=== PATIENT | female | born 1995 | race Caucasian/White ===

== ENCOUNTER 2021-12-16 16:19 | Emergency (ER) | payer OTHER, SELFPAY ==
[2021-12-16 16:25] VITALS: BP 123/78; PULSE 114; RESP 18; O2SAT 99
--- NOTE | 2021-12-16 17:57 | ED.GENADULT ---
HPI - General Adult General Chief complaint: Unspecified Stated complaint: Pregancy Confirmation Time Seen by Provider: 12/16/21 16:47 History of Present Illness HPI narrative: Patient is a 26-year-old female who presents ER for proof of . Patient reports her LMP was at the end of October 2021. She then realize she was late on her test and had a positive line at home over the last couple days. No vaginal bleeding or discharge. No lower abdominal pain. She had some mild nausea this morning. No vomiting. Denies fevers or chills or sweats. She is a G2, P0 who had a spontaneous AB 5 years ago. She does not currently have an director export. Related Data Allergies Allergy/AdvReac Type Severity Reaction Status Date / Time No Known Allergies Allergy Verified 12/16/21 16:21 Review of Systems Review of Systems: All systems reviewed & are unremarkable except as noted in HPI and below Constitutional: Constitutional: Denies chills and Denies fever(s) Respiratory: Respiratory: Denies cough and Denies dyspnea Gastrointestinal: Gastrointestinal: Denies abdominal pain, Reports nausea and Denies vomiting Genitourinary: Genitourinary: Denies abnormal vaginal bleeding, Denies nocturia, Denies dysuria, Denies pelvic pain, Denies urinary urgency and Denies vaginal discharge PMF Past Medical History Medical History (Updated 12/16/21 @ 18:06 by Juan Portillo MD) Healthy female adult Surgical History Surgical History (Updated 12/16/21 @ 18:03 by Juan Portillo MD) No history of previous surgery Social History Social History (Updated 12/16/21 @ 18:04 by Juan Portillo MD) Substance use: former Substance use type: crack/cocaine and heroin Exam Narrative: GENERAL: Well-appearing, well-nourished, and in no acute distress. HEAD: Normocephalic, atraumatic. EYES: PERRL and EOMI. CHEST: Clear to auscultation. No respiratory distress. HEART: Regular rate and rhythm.No murmur heard. Normal peripheral pulses. ABDOMEN: Soft, nontender, nondistended. EXTREMITIES: Normal range of motion. No edema. NEURO: Alert and oriented x3. PSYCH: Normal mood and affect. Course Course Emergency Course: Patient has no complaints of any symptoms. She had a positive test. She will be discharged with some medication for morning sickness and vitamins because she does not have any. We will give her OB follow-up. Vital Signs Vital signs: Vital Signs Pulse Rate 114 H 12/16/21 16:25 Respiratory Rate 18 12/16/21 16:25 Blood Pressure 123/78 12/16/21 16:25 Pulse Oximetry 99 12/16/21 16:25 Pulse Rate 114 H 12/16/21 16:25 Respiratory Rate 18 12/16/21 16:25 Blood Pressure 123/78 12/16/21 16:25 Pulse Oximetry 99 12/16/21 16:25 Medical Decision Making Vital Signs Vital Signs: Vital Signs Pulse Rate 114 H 12/16/21 16:25 Respiratory Rate 18 12/16/21 16:25 Blood Pressure 123/78 12/16/21 16:25 Pulse Oximetry 99 12/16/21 16:25 Pulse Rate 114 H 12/16/21 16:25 Respiratory Rate 18 12/16/21 16:25 Blood Pressure 123/78 12/16/21 16:25 Pulse Oximetry 99 12/16/21 16:25 Lab Data Labs: UCG Bedside Result Positive Reference Range: Negative Discharge Plan Discharge Clinical Impression: , confirmed, not first Patient Disposition: Home, Self-Care Condition: Stable Instructions: (ED) Additional Instructions: Return the ER if you have lower abdominal pain, you have vaginal bleeding, you develop vaginal discharge, you have any additional concerns. Call the OB listed to establish care. Prescriptions: New 28-800 mg-mcg tablet 1 tablet PO DAILY Qty: 30 RF: 4 promethazine 25 mg tablet 12.5 mg PO Q6H PRN (Reason: nausea and vomiting) Qty: 14 RF: 0 Follow-up/Referrals: Slade Underwood MD [Physician] - 1 Week
[2021-12-16 18:20] VITALS: BP 107/66; PULSE 74; RESP 16; O2SAT 100
== END 2021-12-16 18:23 | disposition home or self-care (01) ==
LOC: ANHED 18:07
PROVIDERS: Emergency Provider Emergency Medicine
DX: O26.891 Other specified pregnancy related conditions, first trimester (principal); R11.0 Nausea; Z3A.00 Weeks of gestation of pregnancy not specified
CPT/HCPCS: 81025; 99283

== ENCOUNTER 2022-02-11 11:15 | Emergency (ER) | payer OTHER, SELFPAY ==
[2022-02-11] VITALS (15 sets, daily range): BP systolic 99–121; BP diastolic 56–76; PULSE 57–72; RESP 13–20; TEMP 36.4; O2SAT 97–100
--- NOTE | ~2022-02-11 | CT_ITS ---
EXAMINATION: CT brain wo con INDICATION: Transient alteration of awareness COMPARISON: None TECHNIQUE: Standard unenhanced head CT. The dose-length product (DLP) was 605.33 mGy-cm. The mA was a djusted according to patient size. Iterative reconstruction technique was employed. FINDINGS: There is no intracranial hemorrhage, acute infarction, or abnormal mass lesion. The ventric les are normal. There is no abnormal mass effect or midline shift. The humphries-white matter differentiat ion is normal. The basal cisterns are patent. The orbits are normal. The paranasal sinuses, mastoids and calvarium are normal. IMPRESSION: 1. No acute intracranial abnormality. Reviewed, dictated and finalized at location B.
--- NOTE | ~2022-02-11 | XR_ITS ---
EXAMINATION: XR chest 1V INDICATION: Transient alteration of awareness TECHNIQUE: AP view the chest is obtained. COMPARISON: None available FINDINGS: The lungs are free of acute opacities. There is no pleural effusion or pneumothorax. The ca rdiomediastinal silhouette is normal. The visualized bones and soft tissues are unremarkable. IMPRESSION: 1. No acute cardiopulmonary abnormality. Reviewed, dictated and finalized at location B.
--- NOTE | 2022-02-11 11:24 | ECG_ITS ---
Measurements Intervals [place] Rate: 62 P: 72 ID: 92 QRS: 68 QRSD: 86 T: 61 QT: 410 QTc: 419 Interpretive Statements SINUS RHYTHM WITH SINUS ARRHYTHMIA WITH SHORT ID INTERVAL BASELINE ARTIFACT- I, II, III, AVR, AVL, AVF, V1-V6 BORDERLINE ECG Electronically Signed On 02-11-2022 11:56:00 CDT by Jack Wayne D.O.
[2022-02-11 11:36] LABS: Basophils Absolute Auto 0.1 K/mm3 (0.0-0.1); Basophils Percent Auto 0.6 % (0.2-1.2); Eosinophils Absolute Auto 0.3 K/mm3 (0-0.3); Eosinophils Percent Auto 3.1 % (0-4.4); Hematocrit 43.6 % (37.0-47.0); Hemoglobin 14.4 g/dL (12.0-15.0); Immature Granulocyte Absolute 0.04 K/mm3 (0.00-0.031); Immature Granulocyte Percent A 0.4 % (0-0.5); Immature Platelet Fraction Pct 4.7 % (0.9-11.2); Lymphocytes Absolute Auto 4.13 K/mm3 (0.9-3.2); Lymphocytes Percent Auto 38.1 % (18.3-44.2); Mean Corpuscular Hemoglobin 32.5 pg (26-34); Mean Corpuscular Volume 98.4 fl (80-100); Mean Platelet Volume 10.7 fl (7.4-10.4); Monocytes Absolute Auto 0.8 K/mm3 (0.1-0.6); Monocytes Percent Auto 7.6 % (2.6-8.5); Neutrophils Absolute Auto 5.5 K/mm3 (1.3-6.7); Neutrophils Percent Auto 50.2 % (45.5-73.1); Platelet Count Result 250 k/mm3 (150-375); Red Blood Count 4.43 M/mm3 (4.2-5.4); Red Cell Distribution Width 12.8 % (11.5-14.5); White Blood Count 10.8 K/mm3 (4.5-10.0)
[2022-02-11 11:53] LABS: Platelet Estimate Adequate (Adequate)
[2022-02-11 12:14] LABS: Alanine Aminotransferase 14 U/L (4-35); Albumin Level 4.5 g/dL (3.5-5.1); Alkaline Phosphatase 62 U/L (38-126); Anion Gap 8 mmol/L (8-16); Aspartate Amino Transferase 27 U/L (14-36); Bilirubin,Total 0.5 mg/dL (0.2-1.3); Blood Urea Nitrogen 12 mg/dL (7-17); Carbon Dioxide 23 mmol/L (22-30); Chloride 105 mmol/L (98-107); Estimated Glomerular Filt Rate > 60; Glucose 103 mg/dL (65-110); Potassium 4.2 mmol/L (3.4-5.0); Sodium 136 mmol/L (137-145)
--- NOTE | 2022-02-11 12:17 | ED.GENADULT ---
HPI - General Adult General Chief complaint: Syncope Stated complaint: weakness Time Seen by Provider: 02/11/22 12:02 Source: RN notes reviewed History of Present Illness HPI narrative: Patient presents emergency department for syncopal episode. The patient was being seen by Dr. Duane Hdz in the office today she had had a miscarriage in early January and was being followed up today in the office she had blood work drawn in the office and states that following that she has been leaving and began to feel mildly lightheaded in the elevator they got out to the parking lot and the patient had a syncopal episode she was caught by her significant other before she fell to the ground. Per bystanders she was out for approximately 30 to 45 seconds. Patient feels back to normal at this time she denies any fevers or chills, chest pain, shortness of breath abdominal pain nausea vomiting or any other symptom Related Data Allergies Allergy/AdvReac Type Severity Reaction Status Date / Time No Known Allergies Allergy Verified 12/16/21 16:21 Review of Systems Review of Systems: Gen.: Denies fevers or chills Eyes: Denies eye pain or visual change ENT: Denies congestion Respiratory: Denies shortness of breath or cough CV: See HPI GI: Denies abdominal pain nausea, emesis or diarrhea Musculoskeletal: Denies back pain or muscle pain Neuro: Denies numbness, tingling, weakness or focal weakness Skin: Denies rash Except as documented, all other systems reviewed and negative [facility] Past Medical History Medical History Healthy female adult Surgical History Surgical History (Updated 12/16/21 @ 18:03 by Juan Portillo MD) No history of previous surgery Social History Social History Substance use: former Substance use type: crack/cocaine and heroin Exam Narrative: APPEARANCE: No acute distress, nontoxic, resting in bed EYES: EOMI, PERRL HEENT: Normocephalic, atraumatic, OMM RESPIRATORY: No respiratory distress Clear to auscultation bilaterally with no rhonchi wheezing or rales. CARDIOVASCULAR: Regular rate and rhythm without murmurs rubs or gallops. ABDOMINAL: Soft, nontender, nondistended, no rebound or guarding MUSCULOSKELETAl: Moves all extremities. No clubbing, cyanosis or edema. NEURO: Awake and alert x 3. Following commands, speech normal, no focal deficits SKIN:: Warm, dry. No rashes lesions or abrasions PSYCHIATRIC: Normal affect/mood, Course Course Emergency Course: Patient able to get up and ambulate in ED with no difficulty Discussed with Dr Ansari agrees with plan for discharge Discussed with patient results of workup and diagnosis. Discussed need for follow-up with primary care, proper use of medication, and reasons to return to the emergency department. Patient understands and agrees to current treatment plan Vital Signs Vital signs: Vital Signs Temperature 97.5 F L 02/11/22 11:16 Pulse Rate 65 02/11/22 11:16 Respiratory Rate 16 02/11/22 11:16 Blood Pressure 110/60 02/11/22 11:16 Pulse Oximetry 100 02/11/22 11:16 Temperature 97.5 F L 02/11/22 11:16 Pulse Rate 62 02/11/22 15:23 Respiratory Rate 14 02/11/22 15:23 Blood Pressure 104/76 02/11/22 15:23 Pulse Oximetry 97 02/11/22 15:23 Medical Decision Making MDM Narrative Medical decision making narrative: Patient's episode of syncope is felt due to high risk cause. Syncopal episode was brief and patient is now back to normal mental status. EKG is reviewed without high-risk changes for syncope: There are no signs of prolonged QT or Brugada syndrome. Patient ambulates with a steady gait and is felt to be a reasonable candidate for further evaluation as an outpatient. Patient just had her blood drawn and an SALES EFFECTIVENESS MANAGER office suspect vasovagal episode Vital Signs Vital Signs: Vital Signs Temperature 97.5 F L 02/11/22 11:16 Pulse
[2022-02-11 12:38] LABS: Appearance Urine Slightly Cloudy (Clear); Bilirubin Urine Negative (Negative); Color Urine Yellow (Yellow); Glucose Urine UA Negative (Negative); Ketones Urine 1+ mg/dL (Negative); Leukocyte Esterase Ur Negative LEU/UL (Negative); Nitrate Urine Negative (Negative); Protein Urine 2+ mg/dL (Negative); Specific Grav Ur 1.025 (1.001-1.035)
[2022-02-11 12:40] LABS: Troponin I < 0.012 ng/mL (0.000-0.034)
[2022-02-11 12:42] LABS: Bacteria Urine Trace /hpf; Mucus Urine Heavy /lpf; Squamous Epithelial Cell Urine Many /hpf (Few); WBC Urine 0-3 /hpf
[2022-02-11 12:43] LABS: Add Urine Microscopic? YES; Blood Urine Trace-Intact (Negative)
[2022-02-11] MEDS: SODIUM CHLORIDE 0.9% IV 1,000 ML 999 ML IV CONT (13:06)
== END 2022-02-11 15:27 | disposition home or self-care (01) ==
PROVIDERS: Emergency Medicine; Emergency Provider Emergency Medicine
DX: R55 Syncope and collapse (principal); R94.31 Abnormal electrocardiogram [ECG] [EKG]
CPT/HCPCS: 36415; 70450; 71045; 80053; 81001; 81025; 84484; 85025; 85055; 93005; 96360; 99284; J7030

== ENCOUNTER 2022-04-06 15:58 | Emergency (ER) | payer OTHER, SELFPAY ==
--- NOTE | 2022-04-06 16:02 | ED.DENTAL ---
HPI - Dental/Oral General Chief complaint: Dental/Oral Stated complaint: Toothache Time Seen by Provider: 04/06/22 16:02 Source: patient and RN notes reviewed History of Present Illness HPI Narrative: Patient is a 26-year-old female who presents the urgent care with complaints of left lower dental pain and swollen jaw. Patient denies of any trauma or injury to the jaw. States that she noticed it approximately 1 week ago and does have a cracked wisdom tooth. Patient denies any fever, nausea or vomiting. Patient has been able to eat and talk normally with mild pain and tenderness. Patient has been taking ibuprofen intermittently for the headaches and jaw pain. No other acute complaints. No acute distress noted. Patient aware of the plan of care. Some parts of this dictation were generated by voice recognition software and may contain typographical and/or grammatical inaccuracies. Related Data Allergies Allergy/AdvReac Type Severity Reaction Status Date / Time No Known Allergies Allergy Verified 04/06/22 16:09 Review of Systems Review of Systems: CONSTITUTIONAL: Denies fever, chills, or sweats. EYES: Denies visual changes, redness, or discharge. ENT: Denies rhinorrhea, congestion, sore throat, or otalgia. Reports of left lower dental pain and jaw swelling CARDIOVASCULAR: Denies chest pain, palpitations, or edema. RESPIRATORY: Denies cough or dyspnea. GASTROINTESTINAL: Denies abdominal pain, nausea, vomiting, or diarrhea. GENITOURINARY: Denies dysuria or hematuria. SKIN: Denies rash or itching. MUSCULOSKELETAL: Denies back pain, joint pain, or myalgia. NEUROLOGIC: Denies headache, numbness, or weakness. All other systems reviewed are negative, except as documented in HPI. [facility] Past Medical History Medical History Healthy female adult Surgical History Surgical History (Updated 12/16/21 @ 18:03 by Juan Portillo MD) No history of previous surgery Social History Social History Substance use: former Substance use type: crack/cocaine and heroin Comments At the time of my signature, I reviewed and agree with the nursing past medical, surgical, social, and family history. There is no relevant family history pertinent to the patient complaint. Exam Narrative: GENERAL: This is a well-nourished, well-developed patient, in no apparent distress. HEAD: normocephalic, atraumatic. EYES: PERRL. Sclera clear/white. Vision is grossly intact. EARS: External ears normal NOSE: External nose normal with no obvious nasal discharge, nares without redness, no rhinorrhea. THROAT: Mucous membranes moist, posterior pharynx clear. DENTAL: Carious left lower third molar with small abscess to the posterior aspect and mild surrounding erythema. Bony/firm prominence to the left lower mandible not visible to the inside NECK: Neck supple CARDIOVASCULAR: Regular rate and rhythm without murmurs, gallops, or rubs. RESPIRATORY: Clear to auscultation. Breath sounds equal bilaterally. No wheezes, rales, or rhonchi. SKIN: warm, intact with no suspicious lesions or rash, good texture and turgor. NEURO: awake, alert, and oriented to person, place and time. There were no obvious focal neurologic abnormalities. EXTREMITIES: No clubbing, cyanosis, or edema. Course Course Level of Care: Express Care Visit Vital Signs Vital signs: Vital Signs Temperature 98.6 F 04/06/22 16:05 Pulse Rate 110 H 04/06/22 16:05 Respiratory Rate 18 04/06/22 16:05 Blood Pressure 119/70 04/06/22 16:05 Pulse Oximetry 100 04/06/22 16:05 Oxygen Delivery Room Air 04/06/22 16:05 Temperature 98.6 F 04/06/22 16:05 Pulse Rate 110 H 04/06/22 16:05 Respiratory Rate 18 04/06/22 16:05 Blood Pressure 119/70 04/06/22 16:05 Pulse Oximetry 100 04/06/22 16:05 Oxygen Delivery Room Air 04/06/22 16:05 Reviewed MDM - Dental/Or
[2022-04-06 16:05] VITALS: BP 119/70; PULSE 110; RESP 18; TEMP 37; O2SAT 100
== END 2022-04-06 16:25 | disposition home or self-care (01) ==
PROVIDERS: Emergency Provider Nurse Practitioner Family
DX: K04.7 Periapical abscess without sinus (principal)
CPT/HCPCS: 99213; G0463

== ENCOUNTER 2022-08-19 00:06 | Emergency (ER) | payer OTHER, SELFPAY ==
[2022-08-19 00:26] VITALS: BP 120/57; PULSE 96; RESP 18; TEMP 37.3; O2SAT 100
--- NOTE | 2022-08-19 01:51 | ED.GENADULT ---
HPI - General Adult General Chief complaint: Unspecified Stated complaint: toothache Time Seen by Provider: 08/19/22 01:30 History of Present Illness HPI narrative: 27-year-old female presents emergency room for evaluation of left lower molar pain. States pain has been present for 3 days and is radiating into her jaw during her headaches. Patient also reports being . Denies regular dentist. Related Data Allergies Allergy/AdvReac Type Severity Reaction Status Date / Time No Known Allergies Allergy Verified 08/19/22 01:21 Review of Systems Review of Systems: CONSTITUTIONAL: Denies fever, chills, or sweats. EYES: Denies visual changes, redness, or discharge. ENT: Reports dental pain CARDIOVASCULAR: Denies chest pain, palpitations, or edema. RESPIRATORY: Denies cough or dyspnea. GASTROINTESTINAL: Denies abdominal pain, nausea, vomiting, or diarrhea. GENITOURINARY: Denies dysuria or hematuria. SKIN: Denies rash or itching. MUSCULOSKELETAL: Denies back pain, joint pain, or myalgia. NEUROLOGIC: Denies headache, numbness, dizziness, or weakness. PSYCHIATRIC: Denies anxiety or depression. [facility] Past Medical History Medical History Healthy female adult Surgical History Surgical History No history of previous surgery Social History Social History Substance use: former Substance use type: crack/cocaine and heroin Exam Narrative: GENERAL: Well-appearing, well-nourished, no physical limitations, and in no acute distress. HEAD: Normocephalic, atraumatic. EYES: Conjunctivae normal, PERRLA and EOMI. ENT: Fractured left lower molar. No periapical abscess noted. No surrounding erythema. No submandibular swelling. NECK: Supple. No adenopathy or masses. CHEST: Clear to auscultation. No respiratory distress. No wheezes rales or rhonchi. No tenderness. HEART: Regular rate and rhythm. No murmur heard. Normal peripheral pulses. EXTREMITIES: Normal range of motion. No edema. No clubbing or cyanosis SKIN: Warm, dry, no rash. No noted wounds NEURO: No focal deficits. Alert and oriented x3. MAEW. CN's II-XI intact bilaterally, normal gait PSYCH: Cooperative. Normal mood and affect. Course Vital Signs Vital signs: Vital Signs Temperature 37.3 C 08/19/22 00:26 Pulse Rate 96 08/19/22 00:26 Respiratory Rate 18 08/19/22 00:26 Blood Pressure 120/57 L 08/19/22 00:26 Pulse Oximetry 100 08/19/22 00:26 Oxygen Delivery Room Air 08/19/22 00:26 Temperature 37.3 C 08/19/22 00:26 Pulse Rate 96 08/19/22 00:26 Respiratory Rate 18 08/19/22 00:26 Blood Pressure 120/57 L 08/19/22 00: Pulse Oximetry 100 08/19/22 00: Oxygen Delivery Room Air 08/19/22 00:26 Medical Decision Making Vital Signs Vital Signs: Vital Signs Temperature 37.3 C 08/19/22 00:26 Pulse Rate 96 08/19/22 00:26 Respiratory Rate 18 08/19/22 00:26 Blood Pressure 120/57 L 08/19/22 00:26 Pulse Oximetry 100 08/19/22 00:26 Oxygen Delivery Room Air 08/19/22 00:26 Temperature 37.3 C 08/19/22 00:26 Pulse Rate 96 08/19/22 00:26 Respiratory Rate 18 08/19/22 00:26 Blood Pressure 120/57 L 08/19/22 00:26 Pulse Oximetry 100 08/19/22 00:26 Oxygen Delivery Room Air 08/19/22 00:26 Discharge Plan Discharge Prescriptions: No Action amoxicillin-pot clavulanate 875-125 mg tablet 1 tablet PO Q12H Qty: 20 0RF Follow-up/Referrals: Osito,Curly Leal MD [Primary Care Provider] -
--- NOTE | 2022-08-19 02:23 | ED.GENADULT ---
HPI - General Adult General Chief complaint: Unspecified Stated complaint: toothache Time Seen by Provider: 08/19/22 01:30 Related Data Allergies Allergy/AdvReac Type Severity Reaction Status Date / Time No Known Allergies Allergy Verified 08/19/22 01:21 [facility] Past Medical History Medical History Healthy female adult Surgical History Surgical History No history of previous surgery Social History Social History Substance use: former Substance use type: crack/cocaine and heroin Course Vital Signs Vital signs: Vital Signs Temperature 37.3 C 08/19/22 00:26 Pulse Rate 96 08/19/22 00:26 Respiratory Rate 18 08/19/22 00:26 Blood Pressure 120/57 L 08/19/22 00:26 Pulse Oximetry 100 08/19/22 00:26 Oxygen Delivery Room Air 08/19/22 00:26 Temperature 37.3 C 08/19/22 00:26 Pulse Rate 96 08/19/22 00:26 Respiratory Rate 18 08/19/22 00:26 Blood Pressure 120/57 L 08/19/22 00:26 Pulse Oximetry 100 08/19/22 00:26 Oxygen Delivery Room Air 08/19/22 00:26 Procedures Nerve Block Nerve Block 1: Nerve block date: 08/19/22 Nerve block time: 02:24 Time out performed: Yes Local Anesthetic: lidocaine 1% Amount of anesthesia used (mL): 3 Side: left Intraoral Nerve Block: inferior alveolar Procedure Successful: Yes Patient Tolerated Procedure: well Complications: none Medical Decision Making Vital Signs Vital Signs: Vital Signs Temperature 37.3 C 08/19/22 00:26 Pulse Rate 96 08/19/22 00:26 Respiratory Rate 18 08/19/22 00:26 Blood Pressure 120/57 L 08/19/22 00:26 Pulse Oximetry 100 08/19/22 00:26 Oxygen Delivery Room Air 08/19/22 00:26 Temperature 37.3 C 08/19/22 00:26 Pulse Rate 96 08/19/22 00:26 Respiratory Rate 18 08/19/22 00:26 Blood Pressure 120/57 L 08/19/22 00:26 Pulse Oximetry 100 08/19/22 00:26 Oxygen Delivery Room Air 08/19/22 00:26 Discharge Plan Discharge Clinical Impression: Pain, dental Patient Disposition: Home, Self-Care Condition: Stable Instructions: Antibiotic Form, Toothache (ED) Prescriptions: New amoxicillin 500 mg tablet 500 mg PO Q12H Qty: 20 0RF No Action amoxicillin-pot clavulanate 875-125 mg tablet 1 tablet PO Q12H Qty: 20 0RF Follow-up/Referrals: Osito,Curly Leal MD [Primary Care Provider] - Time of Disposition: 01:54
[2022-08-19 02:42] VITALS: BP 116/63; PULSE 91; RESP 15; O2SAT 100
== END 2022-08-19 02:43 | disposition home or self-care (01) ==
PROVIDERS: Emergency Provider Nurse Practitioner Family; PCP Transplant Surgery
DX: K08.89 Other specified disorders of teeth and supporting structures (principal)
CPT/HCPCS: 64999; 99283

== ENCOUNTER 2022-12-12 21:04 | Observation (INO) | payer OTHER, SELFPAY ==
[2022-12-12] VITALS (30 sets, daily range): BP systolic 105–127; BP diastolic 44–79; PULSE 78–123; RESP 18; TEMP 36.6; O2SAT 97–100
--- NOTE | 2022-12-12 21:28 | PC.NURSE ---
Paged Dr. Ansari.
--- NOTE | 2022-12-12 21:34 | PC.NURSE ---
Dr. Ansari called back. Gave him report on patient coming in with contractions and hx of GDM in . Orders for FFN, SVE, LR 1000 ml bolus, US, check blood sugar and call back.
--- NOTE | 2022-12-12 21:42 | PC.NURSE ---
Pt blood sugar was 78. Called Dr. Ansari. Orders for 0.25 of Terbutaline now.
[2022-12-12 21:43] LABS: Glucose Point of Care 78 mg/dl (65-105)
[2022-12-12] MEDS: TERBUTALINE SULFATE 1 MG/ML VIAL 0.25 MG SUB-Q ×2 (21:51→23:22)
[2022-12-12] MEDS: LACTATED RINGERS 1,000 ML 999 ML IV CONT (22:14)
[2022-12-12 22:36] LABS: Appearance Urine Clear (Clear); Bilirubin Urine Negative (Negative); Blood Urine Trace-intact (Negative); Color Urine Yellow (Yellow); Glucose Urine UA Negative (Negative); Ketones Urine Trace mg/dL (Negative); Leukocyte Esterase Ur Negative LEU/UL (Negative); Nitrate Urine Negative (Negative); Protein Urine 1+ mg/dL (Negative); Specific Grav Ur 1.025 (1.001-1.035); Urobilinogen Urine 0.2 mg/dL (<2.0); pH Urine 6.5 (5.0-9.0)
[2022-12-12 22:47] LABS: Bacteria Urine Trace /hpf; Mucus Urine Rare /lpf; Squamous Epithelial Cell Urine Few /hpf (Few); WBC Urine 0-3 /hpf
[2022-12-12 22:52] LABS: Add Urine Microscopic? YES
[2022-12-12 23:05] LABS: Fetal Fibronectin Negative
--- NOTE | 2022-12-12 23:14 | OBADM ---
This patient, Alisa Gilliam, admitted to the OB room OB Post 115 for observation. Patient/family oriented to hospital policies and general routines including ID bracelet, bed and alarms, visiting hours, pain management, procedures, bathroom and other care routines, personal items, smoking policy, room service/diet, and visiting hours. Patient/Family are encouraged to report perceived risks to care and to ask questions if they do not understand what they are told or what they should do.
--- NOTE | 2022-12-12 23:17 | PC.NURSE ---
Called Dr. Ansari and updated him on SVE, terbutaline helping with contractions but them picking back up, and lab results given. Orders for a second dose of terbutaline.
--- NOTE | 2022-12-12 23:46 | PC.NURSE ---
Pt reports she is not currently feeling contractions.
[2022-12-13 00:01] VITALS: BP 114/56; PULSE 109; PULSE 110; O2SAT 99
[2022-12-13 00:06] VITALS: PULSE 104; O2SAT 100
--- NOTE | 2022-12-13 00:07 | PC.NURSE ---
Pt reports she has not been feeling nay contractions.
[2022-12-13 00:11] VITALS: PULSE 108; O2SAT 99
--- NOTE | 2022-12-13 00:13 | PC.NURSE ---
Updated Dr. Ansari on patients contractions stopping. FFN being negative. Orders to discharge patient.
--- NOTE | 2022-12-13 00:26 | PC.NURSE ---
Discharge instructions reviewed with patient including when to come back to hospital, kick counts, and labor s/s. Pt had no questions and ambulatory to exit.
--- NOTE | 2022-12-28 21:21 | P.PNOB_ITS ---
OB - Triage/Final Diagnosis Visit Information Comments/Additional reasons for admission: I have assessed the risk for this patient, Alisa Gilliam, and determined that she would benefit from observation care. Evaluation Laboratory results: Laboratory Tests 12/12/22 12/12/22 12/12/22 21:40 22:07 22:08 POC Capillary Glucose 78 Urine Color Yellow Urine Appearance Clear Urine pH 6.5 Ur Specific [place] 1.025 Urine Protein 1+ H Urine Glucose (UA) Negative Urine Ketones Trace Ur Blood (Man) Trace-intact Urine Nitrate Negative Urine Bilirubin Negative Urine Urobilinogen 0.2 Leukocyte Esterase Rfl Negative Urine RBC 3-5 H Urine WBC 0-3 Ur Squamous Epith Cells Few Urine Bacteria Trace Urine Mucus Rare Fibronectin Negative Final Diagnosis (1) False labor: Code(s): O47.9 - False labor, unspecified Status: Acute
== END 2022-12-13 00:25 | disposition home or self-care (01) ==
PROVIDERS: Obstetrics & Gynecology; Admitting Provider Obstetrics & Gynecology; Visit Provider Obstetrics & Gynecology
DX: O47.03 False labor before 37 completed weeks of gestation, third trimester (principal); O24.419 Gestational diabetes mellitus in pregnancy, unspecified control; Z3A.33 33 weeks gestation of pregnancy
CPT/HCPCS: 81001; 82731; 82948; 96360; 96372; G0379; J3105; J7120

== ENCOUNTER 2022-12-15 14:15 | Outpatient (RCR) | payer OTHER, SELFPAY | END 2023-02-23 08:38 | disposition home or self-care (01) | LOC: ANHDMC 14:15 | PROVIDERS: PCP Transplant Surgery; Visit Provider Obstetrics & Gynecology | DX: O24.319 Unspecified pre-existing diabetes mellitus in pregnancy, unspecified trimester (principal); Z71.89 Other specified counseling | CPT/HCPCS: G0108 ==

== ENCOUNTER 2022-12-15 21:21 | Observation (INO) | payer OTHER, SELFPAY ==
[2022-12-15] VITALS (18 sets, daily range): BP systolic 113–121; BP diastolic 58–64; PULSE 82–118; O2SAT 98–99; BMI 23.6
--- NOTE | 2022-12-15 22:22 | PC.NURSE ---
Dr. Rosenberg notified of , 33.4 week PT arriving from ED with c/o intermittent cramping that started at 1300 rating them a 5 on a scale of 1-10. PT has not taken any medication for pain. PT was seen here 3 days ago for lili, urine and FFN were performed, FFN neagtive, vitals WNL. PT lili 2-5mins apart, cervical exam performed, cervix is closed at this time. Orders to give a couple doses of Terbutaline, if contractions slow down or subside PT can be discharged home.
--- NOTE | 2022-12-15 22:22 | PC.NURSE ---
On initial call to Dr. Rosenberg RN mention PT c/o decreased movement but has been actively confirming movement per marker.
--- NOTE | 2022-12-15 22:29 | PC.NURSE ---
Mel Cassidy RN at bedside, explained plan of care per Dr. Rosenberg. PT agrees and verbalizes understanding of plan of care.
[2022-12-15] MEDS: TERBUTALINE SULFATE 1 MG/ML VIAL 0.25 MG SUB-Q (22:30)
--- NOTE | 2022-12-15 23:49 | OBADM ---
This patient, Alisa Gilliam, admitted to the OB room OB Post 116 for observation. Patient/family oriented to hospital policies and general routines including ID bracelet, bed and alarms, visiting hours, pain management, procedures, bathroom and other care routines, personal items, smoking policy, room service/diet, and visiting hours. Patient/Family are encouraged to report perceived risks to care and to ask questions if they do not understand what they are told or what they should do.
[2022-12-16] VITALS (16 sets, daily range): BP systolic 117; BP diastolic 66; PULSE 85–134; RESP 16; TEMP 36.5; O2SAT 96–99
[2022-12-16] MEDS: TERBUTALINE SULFATE 1 MG/ML VIAL 0.25 MG SUB-Q (00:24)
--- NOTE | 2022-12-16 01:59 | PC.NURSE ---
Mel Cassidy RN at bedside PT states she is no longer feeling cramping. Discharge instructions given and reviewed, PT verbalizes understanding. PT given opportunity to ask questions with all questions answered. PT stable at this time. PT discharged per Dr. Rosenberg orders.
--- NOTE | 2022-12-16 01:59 | PC.NURSE ---
Upon giving discharge instructions to PT and telling her to follow up with her OB doctor at next scheduled appointment she stated she is a PT of Dr. Duane Hdz. RN confirmed that she said her physician was Dr. Underwood on admission PT states yes, I got confused because I use to see Dr. Underwood. RN explained to PT Dr. Rosenberg was called for orders this visit due to that being the senior controls technician doctor for Dr. Underwood. PT verbalizes understanding.
--- NOTE | 2022-12-17 11:17 | PM.OBTRLD ---
OB - Triage/Final Diagnosis Visit Information Reason for evaluation: threatened labor Comments/Additional reasons for admission: I have assessed the risk for this patient, Alisa Gilliam, and determined that she would benefit from observation care.
== END 2022-12-16 01:59 | disposition home or self-care (01) ==
PROVIDERS: Admitting Provider Obstetrics & Gynecology; Visit Provider Obstetrics & Gynecology
DX: O47.03 False labor before 37 completed weeks of gestation, third trimester (principal); Z3A.33 33 weeks gestation of pregnancy
CPT/HCPCS: 96372; A9270; G0378; G0379; J3105

== ENCOUNTER 2022-12-16 16:03 | Observation (INO) | payer OTHER, SELFPAY ==
[2022-12-16 16:38] VITALS: BP 99/56; PULSE 90
[2022-12-16] MEDS: TERBUTALINE SULFATE 1 MG/ML VIAL 0.25 MG SUB-Q (16:40)
[2022-12-16 16:45] VITALS: BP 92/53; PULSE 101
[2022-12-16 17:00] VITALS: BP 115/54; PULSE 98
[2022-12-16 17:16] VITALS: BP 113/54; PULSE 99
[2022-12-16] MEDS: NIFEdipine 30 MG TAB.ER.24 PO (17:17)
[2022-12-16 17:26] VITALS: BMI 23.6
== END 2022-12-16 18:00 | disposition home or self-care (01) ==
PROVIDERS: Admitting Provider Obstetrics & Gynecology; Visit Provider Obstetrics & Gynecology
DX: O47.03 False labor before 37 completed weeks of gestation, third trimester (principal); Z3A.33 33 weeks gestation of pregnancy
CPT/HCPCS: 96372; A9270; G0378; G0379; J3105

== ENCOUNTER 2022-12-30 21:18 | Observation (INO) | payer OTHER, SELFPAY ==
[2022-12-30 21:29] VITALS: BP 121/67; PULSE 75; PULSE 81; O2SAT 97
[2022-12-30 21:31] VITALS: BP 119/67; PULSE 80
[2022-12-30 21:34] VITALS: PULSE 73; O2SAT 97
[2022-12-30 22:00] VITALS: BMI 23.1
[2022-12-30 22:57] VITALS: BMI 23.1
[2022-12-30] MEDS: NIFEdipine 10 MG CAPSULE PO (23:17)
[2022-12-30 23:21] VITALS: BP 112/67; PULSE 69
[2022-12-30 23:30] VITALS: BP 112/68; PULSE 67
[2022-12-30 23:39] LABS: Appearance Urine Cloudy (Clear); Bacteria Urine None Seen /hpf; Bilirubin Urine Negative (Negative); Blood Urine Negative (Negative); Color Urine Yellow (Yellow); Glucose Urine UA Negative (Negative); Ketones Urine Negative (Negative); Leukocyte Esterase Ur Negative LEU/UL (Negative); Nitrate Urine Negative (Negative); Non Pathogenic Casts 0-2; Protein Urine Trace mg/dL (Negative); RBC Urine 0-2 /hpf (0-2); Specific Grav Ur 1.014 (1.001-1.035); Squamous Epithelial Cell Urine Moderate /hpf (Few); WBC Urine 0-5 /hpf
[2022-12-30 23:45] VITALS: BP 122/74; PULSE 88
[2022-12-30 23:48] LABS: Amphetamine Screen Urine Negative (Negative); Barbiturate Screen Urine Negative (Negative); Benzodiazepines Screen Urine Negative (Negative); Cannabinoid Screen Urine Positive (Negative); Cocaine Screen Urine Negative (Negative); Methadone Screen Urine Negative (Negative); Opiate Screen Urine Negative (Negative); Phencyclidine Screen Urine Negative (Negative)
[2022-12-31] VITALS: BP 109/63; PULSE 84
[2022-12-31 00:01] LABS: Add Urine Microscopic? YES
[2022-12-31 00:15] VITALS: BP 106/61; PULSE 70
[2022-12-31] MEDS: NIFEdipine 10 MG CAPSULE PO (00:25)
[2022-12-31 00:30] VITALS: BP 110/71; PULSE 85
--- NOTE | 2022-12-31 00:45 | OBADM ---
This patient, Alisa Gilliam, admitted to the OB room OB Post 117 for observation. Patient/family oriented to hospital policies and general routines including ID bracelet, bed and alarms, visiting hours, pain management, procedures, bathroom and other care routines, personal items, smoking policy, room service/diet, and visiting hours. Patient/Family are encouraged to report perceived risks to care and to ask questions if they do not understand what they are told or what they should do.
--- NOTE | 2022-12-31 01:39 | PC.NURSE ---
[address] MERCER. [id number] DR[address] MERCER RESPONDED TO PAGE. REPORTED CURRENT MATERNAL AND STATUS. ORDERS RECEVIED TO GIVE PROCARDIA 10MG PO NOW, THEN REPEAT DOSE IN 30 MINUTES IF CONTRACTIONS RESUME. SEND UA AND UDS. OKAY TO DISCHARGE PT IF CONTRACTIONS DO NOT RESUME AND PT IS FEELING BETTER.
--- NOTE | 2022-12-31 01:41 | PC.NURSE ---
0100 DISCHARGE INSTRUCTIONS GIVEN WRITTEN AND VERBALLY TO PT. PT DENIES QUESTIONS OR CONCERNS AND VERBALIZES UNDERSTANDING. PT LEAVES L&D AMBULATORY ACCOMPANIED BY FAMILY MEMBERS, NO DISTRESS NOTED.
--- NOTE | 2023-01-25 14:26 | P.PNOB_ITS ---
OB - Triage/Final Diagnosis Visit Information Comments/Additional reasons for admission: I have assessed the risk for this patient, Alisa Gilliam, and determined that she would benefit from observation care. Evaluation Laboratory results: Laboratory Tests 12/30/22 12/30/22 23:25 23:25 Urine Color Yellow Urine Appearance Cloudy H Urine pH 7.0 Ur Specific [place] 1.014 Urine Protein Trace Urine Glucose (UA) Negative Urine Ketones Negative Ur Blood (Man) Negative Urine Nitrate Negative Urine Bilirubin Negative Urine Urobilinogen 1.0 Leukocyte Esterase Rfl Negative Urine RBC 0-2 Urine WBC 0-5 Ur Squamous Epith Cells Moderate H Urine Bacteria None seen Urine Casts 0-2 Urine Opiates Screen Negative Urine Methadone Screen Negative Ur Barbiturates Screen Negative Ur Phencyclidine Scrn Negative Ur Amphetamine Screen Negative U Benzodiazepines Scrn Negative Urine Cocaine Screen Negative U Cannabinoids Screen Positive A Final Diagnosis (1) Swelling: Code(s): R60.9 - Edema, unspecified Status: Acute
== END 2022-12-31 01:00 | disposition home or self-care (01) ==
PROVIDERS: Admitting Provider Obstetrics & Gynecology; Visit Provider Obstetrics & Gynecology
DX: O12.03 Gestational edema, third trimester (principal); Z3A.35 35 weeks gestation of pregnancy
CPT/HCPCS: 80307; 81001; A9270; G0378; G0379

== ENCOUNTER 2023-01-13 16:25 | Outpatient (RCR) | payer OTHER, SELFPAY ==
--- NOTE | 2023-01-13 17:00 | PC.NURSE ---
Dr. Ansari called on the pt with decreased movement. NST reactive. Pt reports she is out of test strips for her glucometer. states he will send a script to [facility] in [place]. Order to discharge received.
[2023-01-13 17:29] VITALS: BP 115/72; PULSE 81
== END 2023-04-13 23:59 | disposition home or self-care (01) ==
LOC: ANHOBOP 16:25
PROVIDERS: Visit Provider Obstetrics & Gynecology
DX: O36.8130 Decreased fetal movements, third trimester, not applicable or unspecified (principal); Z3A.37 37 weeks gestation of pregnancy
CPT/HCPCS: 59025

== ENCOUNTER 2023-01-25 22:04 | Observation (INO) | payer OTHER, SELFPAY ==
[2023-01-25 22:16] VITALS: BP 111/59; PULSE 73
[2023-01-25 22:20] VITALS: BMI 24.3
--- NOTE | 2023-01-25 23:34 | OBADM ---
This patient, Alisa Gilliam, admitted to the OB room OB Post 112 for observation. Patient/family oriented to hospital policies and general routines including ID bracelet, bed and alarms, visiting hours, pain management, procedures, bathroom and other care routines, personal items, smoking policy, room service/diet, and visiting hours. Patient/Family are encouraged to report perceived risks to care and to ask questions if they do not understand what they are told or what they should do.
--- NOTE | 2023-01-27 06:01 | PM.OBTRLD ---
OB - Triage/Final Diagnosis Visit Information Reason for evaluation: other ( leaking fluid) Comments/Additional reasons for admission: I have assessed the risk for this patient, Alisa Gilliam, and determined that she would benefit from observation care.
== END 2023-01-25 23:30 | disposition home or self-care (01) ==
PROVIDERS: Admitting Provider Obstetrics & Gynecology; Visit Provider Obstetrics & Gynecology
DX: O42.92 Full-term premature rupture of membranes, unspecified as to length of time between rupture and onset of labor (principal); Z3A.39 39 weeks gestation of pregnancy
CPT/HCPCS: 59025; G0378; G0379

== ENCOUNTER 2023-01-30 05:03 | Inpatient (IN) | payer OTHER, SELFPAY ==
[2023-01-30] VITALS (226 sets, daily range): BP systolic 86–218; BP diastolic 14–199; PULSE 57–205; RESP 16; TEMP 36.1–36.7; O2SAT 94–100; BMI 24.3
--- NOTE | 2023-01-30 05:23 | LDADM ---
This patient, Alisa Gilliam, was admitted to Labor/Delivery/Recovery 103 on 01/30/23 at 05:03. Plans for labor, pain management and were discussed with patient. Patient/family oriented to hospital policies and general routines including ID bracelet, bed and alarms, visiting hours, pain management, procedures, bathroom and other care routines, personal items, smoking policy, room service/diet and guest tray routines, security routines, and visiting hours. Patient/Family are encouraged to report perceived risks to care and to ask questions if they do not understand what they are told or what they should do. See OBIX for further documentation.
[2023-01-30 05:46] LABS: Basophils Percent Auto 0.3 % (0.2-1.2); Eosinophils Absolute Auto 0.1 K/mm3 (0-0.3); Eosinophils Percent Auto 0.9 % (0-4.4); Hematocrit 36.6 % (37.0-47.0); Hemoglobin 11.9 g/dL (12.0-15.0); Immature Granulocyte Absolute 0.07 K/mm3 (0.00-0.031); Immature Granulocyte Percent A 0.6 % (0-0.5); Lymphocytes Absolute Auto 3.16 K/mm3 (0.9-3.2); Lymphocytes Percent Auto 26.6 % (18.3-44.2); Mean Corpuscular HGB Conc 32.5 g/dl (32-36); Mean Corpuscular Volume 92.2 fl (80-100); Mean Platelet Volume 10.6 fl (7.4-10.4); Monocytes Absolute Auto 0.8 K/mm3 (0.1-0.6); Monocytes Percent Auto 6.8 % (2.6-8.5); Neutrophils Absolute Auto 7.7 K/mm3 (1.3-6.7); Neutrophils Percent Auto 64.8 % (45.5-73.1); Platelet Count Result 273 k/mm3 (150-375); Red Blood Count 3.97 M/mm3 (4.2-5.4); Red Cell Distribution Width 14.6 % (11.5-14.5); White Blood Count 11.9 K/mm3 (4.5-10.0)
[2023-01-30] MEDS: LACTATED RINGERS 1,000 ML 125 ML IV CONT ×2 (05:51→08:30)
[2023-01-30] MEDS: OXYTOCIN 30 UNITS/NS 500 ML 30 UNITS/500 ML BAG IV CONT (05:51)
[2023-01-30 05:57] LABS: Glucose Point of Care 88 mg/dl (65-105)
[2023-01-30 06:04] LABS: Amphetamine Screen Urine Negative (Negative); Barbiturate Screen Urine Negative (Negative); Benzodiazepines Screen Urine Negative (Negative); Cannabinoid Screen Urine Positive (Negative); Cocaine Screen Urine Negative (Negative); Methadone Screen Urine Negative (Negative); Opiate Screen Urine Negative (Negative); Phencyclidine Screen Urine Negative (Negative)
--- NOTE | 2023-01-30 06:47 | PM.IMHP ---
H&P: HPI History of Present Illness Date/Time: 01/30/23 06:47 Chief Complaint: Postdates Narrative: this is a 27-year-old 2 para 0 whose last menstrual period is unknown, EDC is 01/29/2023, confirmed by 10 week ultrasound who presents at 40-,1/7 weeks gestation for induction of labor. Her has been uncomplicated. The cervix is favorable at 3cm PMFSH Past Medical History Medical History Healthy female adult Surgical History Surgical History No history of previous surgery Family History Family History Grandparent Diabetes mellitus Father Diabetes mellitus Social History Social History Smoking status: Former smoker Tobacco type: cigarettes Substance use: current Substance use type: crack/cocaine and heroin Other substance usage details: Smokes occasionally, Used heroin as teenager Last use: 12/29 Lack of Transportation: No Lack of Food: Never True Current Housing: I Have Housing Concerned About Future Housing: No Difficulty Paying Gas/Electric Bills: No Difficulty Paying for Meds: No Currently Unemployed: No Education: Grade School Difficulty w/ Childcare or Family Care: No Spiritual care concerns: No Meds Home Medications and Allergies Home Medications Medication Instructions Recorded Confirmed Type vit no.95-ferrous 1 tablet PO DAILY 12/12/22 12/16/22 History fumarate 28 mg-folic acid 800 mcg tablet () nifedipine 30 mg tablet,extended 30 mg PO QAM #20 tabs 12/16/22 Rx release 24 hr (Procardia XL) amoxicillin 500 mg tablet 500 mg PO TID 01/02/23 01/02/23 History Allergies Allergy/AdvReac Type Severity Reaction Status Date / Time No Known Allergies Allergy Verified 12/12/22 23:32 Vital Signs Vital Signs - 24 hr 01/30/23 05:19 01/30/23 05:30 01/30/23 05:45 Temperature 97.5 F L Pulse Rate 97 85 89 Blood Pressure 133/75 119/71 114/71 Oxygen Delivery 01/30/23 06:00 01/30/23 06:15 01/30/23 06:30 Temperature Pulse Rate 86 80 76 Blood Pressure 117/72 115/68 115/70 Oxygen Delivery 01/30/23 06:45 01/30/23 05:21 Temperature Pulse Rate 77 Blood Pressure 123/80 Oxygen Delivery Room Air Exam Const: General: cooperative, healthy appearing, comfortable, poor hygiene and thin Orientation/consciousness: oriented to person, oriented to place and oriented to time HENMT: Head: normal to inspection Resp: Effort & Inspection: normal respiratory effort Cardio: Rate: regular rate Rhythm: regular rhythm Heart sounds: S1 normal heart sound present and S2 normal heart sound present GI: Inspection: normal to inspection ( gravid soft uterus) Auscultation: normal bowel sounds : External Female Exam: normal external appearance Speculum Exam - Vagina: normal appearance of the vagina Speculum Exam - Cervix: normal appearance of the cervix ( cervix 3/90/minus. AROM clear. FHT is reassuring) H&P: Results Labs Labs: Short CBC 01/30/23 Range/Units 05:36 WBC 11.9 H (4.5-10.0) K/mm3 Hgb 11.9 L (12.0-15.0) g/dL Hct 36.6 L (37.0-47.0) % Plt Count 273 (150-375) k/mm3 Assessment and Plan Assessment and plan (1) Post-dates : Code(s): O48.0 - Post-term Status: Acute Plan medical induction of labor. Spontaneous vaginal delivery is expected. She has an epidural candidate
--- NOTE | 2023-01-30 08:31 | WPDANESEPPF ---
Anes - Initial Pre Proc Eval Date/Time: 01/30/23 08:31 Surgeon: Blaine Hdz MD Pre Op Diagnosis: IOL Patient Data Age: 27 Gender: F Height: 1.5 m Weight: 54.5 kg Last Vital Signs Temp 36.6 C 01/30/23 07:00 Pulse 67 01/30/23 08:30 BP 113/57 L 01/30/23 08:30 Pulse Ox 99 01/30/23 08:28 O2 Del Method Room Air 01/30/23 05:21 Allergies Allergy/AdvReac Type Severity Reaction Status Date / Time No Known Allergies Allergy Verified 12/12/22 23:32 Home Medications Medication Instructions Recorded Confirmed Type vit no.95-ferrous 1 tablet PO DAILY 12/12/22 12/16/22 History fumarate 28 mg-folic acid 800 mcg tablet () nifedipine 30 mg tablet,extended 30 mg PO QAM #20 tabs 12/16/22 Rx release 24 hr (Procardia XL) amoxicillin 500 mg tablet 500 mg PO TID 01/02/23 01/02/23 History Laboratory Tests 01/30/23 01/30/23 01/30/23 05:36 05:36 05:36 WBC 11.9 K/mm3 H K/mm3 (4.5-10.0) RBC 3.97 M/mm3 L M/mm3 (4.2-5.4) Hgb 11.9 g/dL L g/dL (12.0-15.0) Hct 36.6 % L % (37.0-47.0) MCV 92.2 fl fl (80-100) MCH 30.0 pg pg (26-34) MCHC 32.5 g/dl g/dl (32-36) RDW 14.6 % H % (11.5-14.5) Plt Count 273 k/mm3 k/mm3 (150-375) MPV 10.6 fl H fl (7.4-10.4) Immature Gran % (Auto) 0.6 % H % (0-0.5) Neut % (Auto) 64.8 % % (45.5-73.1) Lymph % (Auto) 26.6 % % (18.3-44.2) [place] % (Auto) 6.8 % % (2.6-8.5) Eos % (Auto) 0.9 % % (0-4.4) Baso % (Auto) 0.3 % % (0.2-1.2) Lymph # (Auto) 3.16 K/mm3 K/mm3 (0.9-3.2) Marin # (Auto) 0.8 K/mm3 H K/mm3 (0.1-0.6) Eos # (Auto) 0.1 K/mm3 K/mm3 (0-0.3) Baso # (Auto) 0.0 K/mm3 K/mm3 (0.0-0.1) Abs Immat Gran (auto) 0.07 K/mm3 H K/mm3 (0.00-0.031) Absolute Neuts (auto) 7.7 K/mm3 H K/mm3 (1.3-6.7) Absolute Nucleated RBC 0.0 K/mm3 K/mm3 (0.0-0.012) Nucleated RBC % 0.0 % % (0.0-0.2) POC Capillary Glucose Urine Opiates Screen Urine Methadone Screen Ur Barbiturates Screen Ur Phencyclidine Scrn Ur Amphetamine Screen U Benzodiazepines Scrn Urine Cocaine Screen U Cannabinoids Screen RPR Pending Blood Type A Positive Antibody Screen Negative 01/30/23 01/30/23 05:38 05:55 WBC RBC Hgb Hct MCV MCH MCHC RDW Plt Count MPV Immature Gran % (Auto) Neut % (Auto) Lymph % (Auto) Marin % (Auto) Eos % (Auto) Baso % (Auto) Lymph # (Auto) Marin # (Auto) Eos # (Auto) Baso # (Auto) Abs Immat Gran (auto) Absolute Neuts (auto) Absolute Nucleated RBC Nucleated RBC % POC Capillary Glucose 88 mg/dl mg/dl (65-105) Urine Opiates Screen Negative (Negative) Urine Methadone Screen Negative (Negative) Ur Barbiturates Screen Negative (Negative) Ur Phencyclidine Scrn Negative (Negative) Ur Amphetamine Screen Negative (Negative) U Benzodiazepines Scrn Negative (Negative) Urine Cocaine Screen Negative (Negative) U Cannabinoids Screen Positive A (Negative) RPR Blood Type Antibody Screen Patient hx anesthesia problems: none Family hx anesthesia problems: none Results Review: All pre-operative results and documents have been reviewed as part of the pre-operative evaluation. [facility] Past Medical History Medical History Anxiety Diabetes, gestational Hypertension Surgical
[2023-01-30 10:10] LABS: Glucose Point of Care 84 mg/dl (65-105)
[2023-01-30 10:35] LABS: Rapid Plasma Reagin Non-Reactive (NonReactive)
[2023-01-30 11:55] LABS: Glucose Point of Care 89 mg/dl (65-105)
--- NOTE | 2023-01-30 12:07 | PM.OBPNLAB ---
Pain Control Date/time seen: 01/30/23 12:07 Pain control: tolerating well and epidural Pelvic Exam Dilation (cm): 7 Amniotic membrane status: Ruptured Contractions Monitor mode: External
[2023-01-30] MEDS: ONDANSETRON INJ 4 MG/2 ML VIAL IV PUSH (13:25)
[2023-01-30 13:57] LABS: Glucose Point of Care 70 mg/dl (65-105)
[2023-01-30 17:28] LABS: Glucose Point of Care 87 mg/dl (65-105)
--- NOTE | 2023-01-30 18:15 | PM.OBPRVD ---
OB - Delivery Note Procedure Delivery date: 01/30/23 Procedure: mil Induction method: AROM Delivery augmentation: Pitocin Delivery monitor: External FHT and Internal Uterine Route of delivery: Episiotomy description: None Laceration Description: None Specimen: No Quantitative Blood Loss (ml): 60 Anesthesia type: Epidural Disposition: Floor Baby Date of : 01/30/23 Time of : 18:05 Weeks of gestation at delivery: 40 gender: Female presentation: vertex position: Right Occiput Anterior Placenta delivery description: Spontaneous Cord Vessel Description: 3 Vessels and Delayed Cord Clamping score one minute: 8 score five minutes: 9
[2023-01-30] MEDS: BENZOCAINE 20% AER SPR (*SP) 56 GM CAN 1 SPRAY TOPICAL (21:00)
[2023-01-30] MEDS: OXYTOCIN 30 UNITS/NS 500 ML 30 UNITS/500 ML BAG 125 UNITS IV CONT (21:00)
[2023-01-30] MEDS: WITCH HAZEL 40 PADS 1 PAD TOPICAL (21:00)
[2023-01-30] MEDS: IBUPROFEN 600 MG TABLET PO (21:37)
[2023-01-31 05:06] LABS: Hematocrit 34.6 % (37.0-47.0); Hemoglobin 11.3 g/dL (12.0-15.0)
--- NOTE | 2023-01-31 06:14 | P.DS_ITS ---
DS: Admitting Diagnosis Discharge Date 02/01/2023 Admitting Diagnosis term DS: Discharge Diagnosis Discharge Diagnosis (1) Post-dates : Code(s): O48.0 - Post-term Status: Acute DS: Summary Hospital Course Reason for hospitalization: induction of labor at term Hospital Course: the patient was admitted on 01/30. She underwent successful induction of labor. Her hospital course unremarkable. She remained afebrile. She was up, bottle feeding, voiding without difficulty, eating regular diet, and generally without complaints. Time Spent with Patient Time attestation: Total time spent providing and/or coordinating discharge services: DS: Data Data Completed and Pending Labs on day of discharge: Labs from last 24 hours 01/31/23 01/30/23 01/30/23 03:34 17:26 13:46 Hgb 11.3 L Hct 34.6 L POC Capillary Glucose 87 70 RPR Blood Type Antibody Screen 01/30/23 01/30/23 01/30/23 11:52 10:05 05:36 Hgb Hct POC Capillary Glucose 89 84 RPR Blood Type A Positive Antibody Screen Negative 01/30/23 05:36 Hgb Hct POC Capillary Glucose RPR Non-reactive Blood Type Antibody Screen Discharge Plan Discharge Attending physician on discharge: Blaine Clinton Discharging Clinician: Blaine Clinton Patient Disposition: Home, Self-Care Activity: may shower, no straining and pelvic rest Diet: heart healthy Wound Care Instructions: follow printed instructions Patient Instructions: Antibiotic Form Stand Alone Forms: General Discharge Information Follow-up/Referrals: Blaine Clinton MD [Physician] - Discharge Medications: No Action PNV cmb#95-ferrous fumarate-FA [] 28 mg iron- 800 mcg tablet 1 tablet PO DAILY amoxicillin 500 mg Tablet 500 mg PO TID nifedipine [Procardia XL] 30 mg Tablet Extended Release 24hr 30 mg PO QAM Qty: 20 0RF Date of admission: 01/30/23 05:03 Primary Care Provider: PHYSICIAN,TREATMENT SPECIALIST Admitting Provider: Blaine Clinton Attending physician on admission: Blaine Clinton Condition: Stable
--- NOTE | 2023-01-31 06:15 | PM.OBPNVD ---
OB - PN: Subj Subjective Date/time seen: 01/31/23 06:15 Patient comments: no complaints and pain well controlled baby status: doing well OB - PN: Obj Data Labs 01/31/23 03:34 Labs: Laboratory Results - last 24 hr 01/30/23 01/30/23 01/30/23 05:36 05:36 10:05 Hgb Hct POC Capillary Glucose 84 RPR Non-reactive Blood Type A Positive Antibody Screen Negative 01/30/23 01/30/23 01/30/23 11:52 13:46 17:26 Hgb Hct POC Capillary Glucose 89 70 87 RPR Blood Type Antibody Screen 01/31/23 03:34 Hgb 11.3 L Hct 34.6 L POC Capillary Glucose RPR Blood Type Antibody Screen OB - PN A/P Plan day: 1 Plan: routine care Time Spent With Patient Time: Total time spent is greater than 50% in coordination of care (as documented) at patient's floor/unit and/or counseling patient: Time with patient: less than 15 minutes Exam Const: General: cooperative, healthy appearing and comfortable Nutritional Appearance: average body habitus Orientation/consciousness: oriented to person, oriented to place and oriented to time HENMT: Head: normal to inspection Resp: Effort & Inspection: normal respiratory effort Cardio: Rate: regular rate Rhythm: regular rhythm Heart sounds: S1 normal heart sound present and S2 normal heart sound present GI: Inspection: normal to inspection ( Fundus firm below umbilicus)
[2023-01-31 07:30] VITALS: PULSE 82; RESP 18; O2SAT 100
[2023-01-31 07:45] VITALS: BP 105/70; PULSE 82; RESP 18; TEMP 36.8; O2SAT 100
[2023-01-31] MEDS: MULTIVIT/MIN/PREN/FOL AC/IRON TABLET 1 TAB PO (07:45)
[2023-01-31] MEDS: IBUPROFEN 600 MG TABLET PO ×2 (07:45→16:15)
[2023-01-31] MEDS: DOCUSATE SODIUM 100 MG CAPSULE PO ×2 (07:45→16:15)
--- NOTE | 2023-01-31 09:35 | WPDANLDPN2 ---
Anes-Prog Note L&D Date/Time: 01/31/23 09:35 Neuro status: Neuro function grossly intact. Vital Signs: Last Vital Signs Temp 36.8 C 01/31/23 07:45 Pulse 82 01/31/23 07:45 Resp 18 01/31/23 07:45 BP 105/70 01/31/23 07:45 Pulse Ox 100 01/31/23 07:45 O2 Del Method Room Air 01/30/23 05:21 Pain score (VAS): 0 I/O: Intake & Output 01/30/23 01/31/23 01/31/23 23:59 07:59 15:59 Output Total 60 Balance -60 Patient feedback: Patient satisfied with anesthetic care.
[2023-01-31 12:28] VITALS: BP 110/66; PULSE 70; RESP 16; TEMP 36.8; O2SAT 100
[2023-01-31 16:15] VITALS: PULSE 70; RESP 16; O2SAT 100
[2023-01-31 18:59] VITALS: BP 112/62; PULSE 67; RESP 14; TEMP 36.9; O2SAT 98
--- NOTE | 2023-02-01 06:20 | P.PNOB_ITS ---
OB - PN: Subj Subjective Date/time seen: 02/01/23 06:20 Patient comments: no complaints and pain well controlled baby status: doing well OB - PN: Obj Data Labs 01/31/23 03:34 OB - PN A/P Plan day: 2 Plan: routine care, discharge home and follow up 6 weeks Time Spent With Patient Time: Total time spent is greater than 50% in coordination of care (as documented) at patient's floor/unit and/or counseling patient: Time with patient: less than 15 minutes Exam Const: General: cooperative, healthy appearing, comfortable and average body habitus Nutritional Appearance: average body habitus Orientation/co nsciousness: oriented to person, oriented to place and oriented to time HENMT: Head: normal to inspection Resp: Effort & Inspection: normal respiratory effort Cardio: Rate: regular rate Rhythm: regular rhythm Heart sounds: S1 normal heart sound present and S2 normal heart sound present GI: Inspection: normal to inspection
[2023-02-01 08:00] VITALS: BP 111/59; PULSE 67; RESP 16; TEMP 36.9; O2SAT 99
--- NOTE | 2023-02-01 10:23 | PC.NURSE ---
01/31/23 Primary RN reported that mother had changed her mind and decided to pump and feed only. Declined putting the infant to breast.
[2023-02-01 10:54] VITALS: PULSE 67; RESP 16; O2SAT 99
[2023-02-01] MEDS: DOCUSATE SODIUM 100 MG CAPSULE PO (11:00)
[2023-02-01] MEDS: BENZOCAINE 20% AER SPR (*SP) 56 GM CAN 1 SPRAY TOPICAL (11:00)
[2023-02-01] MEDS: IBUPROFEN 600 MG TABLET PO (11:00)
[2023-02-01] MEDS: MULTIVIT/MIN/PREN/FOL AC/IRON TABLET 1 TAB PO (11:01)
[2023-02-01] MEDS: WITCH HAZEL 40 PADS 1 PAD TOPICAL (11:01)
--- NOTE | 2023-02-01 11:06 | PC.NURSE ---
Patient viewed the discharge video Mother & Baby Care, The First Two Weeks . Patient was given the opportunity and encouraged to ask questions. Patient verbalized understanding of information shared and has been given the mother/baby guide for home reference.
[2023-02-03 11:27] VITALS: BP 119/75; PULSE 91; RESP 18; TEMP 36.9; O2SAT 99
== END 2023-02-01 12:50 | disposition home or self-care (01) | DRG 560 ==
LOC: ANHLDR 18:14 → ANHOB2 21:37
PROVIDERS: Admitting Provider Obstetrics & Gynecology; Visit Provider Obstetrics & Gynecology
DX: O48.0 Post-term pregnancy (principal); O24.429 Gestational diabetes mellitus in childbirth, unspecified control; Z37.0 Single live birth; Z3A.40 40 weeks gestation of pregnancy
CPT/HCPCS: 36415; 80307; 82948; 85014; 85018; 85025; 86592; 86850; 86900; 86901; A9270; J2405; J2590; J2795; J7120

== ENCOUNTER 2023-07-10 21:51 | Emergency (ER) | payer OTHER, SELFPAY ==
[2023-07-10 22:14] VITALS: BP 120/68; PULSE 88; RESP 20; TEMP 36.3; O2SAT 100
[2023-07-10 22:26] LABS: Basophils Percent Auto 0.5 % (0.2-1.2); Eosinophils Absolute Auto 0.1 K/mm3 (0-0.3); Eosinophils Percent Auto 1.5 % (0-4.4); Hemoglobin 12.6 g/dL (12.0-15.0); Immature Granulocyte Absolute 0.02 K/mm3 (0.00-0.031); Immature Granulocyte Percent A 0.2 % (0-0.5); Lymphocytes Absolute Auto 3.27 K/mm3 (0.9-3.2); Lymphocytes Percent Auto 40.1 % (18.3-44.2); Mean Corpuscular HGB Conc 32.3 g/dl (32-36); Mean Corpuscular Hemoglobin 29.6 pg (26-34); Mean Corpuscular Volume 91.8 fl (80-100); Mean Platelet Volume 9.4 fl (7.4-10.4); Monocytes Absolute Auto 0.5 K/mm3 (0.1-0.6); Monocytes Percent Auto 6.6 % (2.6-8.5); Neutrophils Absolute Auto 4.2 K/mm3 (1.3-6.7); Neutrophils Percent Auto 51.1 % (45.5-73.1); Platelet Count Result 300 k/mm3 (150-375); Red Blood Count 4.25 M/mm3 (4.2-5.4); Red Cell Distribution Width 13.8 % (11.5-14.5); White Blood Count 8.2 K/mm3 (4.5-10.0)
[2023-07-10 22:32] LABS: Appearance Urine Cloudy (Clear); Bacteria Urine None Seen /hpf; Bilirubin Urine Negative (Negative); Blood Urine Negative (Negative); Color Urine Yellow (Yellow); Glucose Urine UA Negative (Negative); Ketones Urine Negative (Negative); Leukocyte Esterase Ur Negative LEU/UL (Negative); Nitrate Urine Negative (Negative); Non Pathogenic Casts 0-2; Protein Urine Negative (Negative); RBC Urine 0-2 /hpf (0-2); Specific Grav Ur 1.023 (1.001-1.035); Squamous Epithelial Cell Urine Occasional /hpf (Few); WBC Urine 0-5 /hpf
[2023-07-10 22:36] LABS: Alanine Aminotransferase 15 U/L (6-35); Albumin Level 4.1 g/dL (3.5-5.1); Alkaline Phosphatase 49 U/L (38-126); Anion Gap 8 mmol/L (8-16); Aspartate Amino Transferase 22 U/L (14-36); Bilirubin,Total 0.4 mg/dL (0.2-1.3); Blood Urea Nitrogen 9 mg/dL (7-17); Calcium 8.4 mg/dL (8.4-10.2); Carbon Dioxide 23 mmol/L (22-30); Chloride 104 mmol/L (98-107); Estimated Glomerular Filt Rate > 60; Glucose 122 mg/dL (65-110); Lipase 434 U/L (23-300); Potassium 3.7 mmol/L (3.4-5.0); Sodium 135 mmol/L (137-145)
[2023-07-10 22:37] LABS: Add Urine Microscopic? YES
== END 2023-07-11 01:36 | disposition left against medical advice (07) ==
PROVIDERS: Emergency Medicine; Emergency Provider Emergency Medicine
DX: R10.9 Unspecified abdominal pain (principal)
CPT/HCPCS: 36415; 80053; 81001; 81025; 83690; 84702; 85025; 99199

== ENCOUNTER 2024-03-03 23:09 | Observation (INO) | payer OTHER, SELFPAY ==
[2024-03-04 04:05] VITALS: BMI 20.5
== END 2024-03-04 04:20 | disposition home or self-care (01) ==
PROVIDERS: Admitting Provider Obstetrics & Gynecology; Visit Provider Obstetrics & Gynecology
DX: O47.9 False labor, unspecified (principal)
CPT/HCPCS: G0378; G0379

== ENCOUNTER 2024-03-04 05:57 | Inpatient (IN) | payer OTHER, SELFPAY ==
[2024-03-01 16:05] VITALS: BMI 22.2
[2024-03-04] VITALS (139 sets, daily range): BP systolic 57–229; BP diastolic 12–207; PULSE 63–282; RESP 16–20; TEMP 36.4–37; O2SAT 93–100
[2024-03-04] MEDS: LACTATED RINGERS 1,000 ML 999 ML IV CONT (06:35)
[2024-03-04 06:37] LABS: Basophils Percent Auto 0.3 % (0.2-1.2); Eosinophils Absolute Auto 0.1 K/mm3 (0-0.3); Eosinophils Percent Auto 0.8 % (0-4.4); Hematocrit 35.4 % (37.0-47.0); Hemoglobin 11.2 g/dL (12.0-15.0); Immature Granulocyte Absolute 0.06 K/mm3 (0.00-0.031); Immature Granulocyte Percent A 0.8 % (0-0.5); Lymphocytes Absolute Auto 2.04 K/mm3 (0.9-3.2); Lymphocytes Percent Auto 26.2 % (18.3-44.2); Mean Corpuscular HGB Conc 31.6 g/dl (32-36); Mean Corpuscular Hemoglobin 27.9 pg (26-34); Mean Corpuscular Volume 88.1 fl (80-100); Mean Platelet Volume 9.9 fl (7.4-10.4); Monocytes Absolute Auto 0.6 K/mm3 (0.1-0.6); Monocytes Percent Auto 7.9 % (2.6-8.5); Platelet Count Result 285 k/mm3 (150-375); Red Blood Count 4.02 M/mm3 (4.2-5.4); Red Cell Distribution Width 14.3 % (11.5-14.5); White Blood Count 7.8 K/mm3 (4.5-10.0)
--- NOTE | 2024-03-04 06:56 | LDADM ---
This patient, Alisa Gilliam, was admitted to Labor/Delivery/Recovery 108 on 03/04/24 at 05:57. Plans for labor, pain management and were discussed with patient. Patient/family oriented to hospital policies and general routines including ID bracelet, bed and alarms, visiting hours, pain management, procedures, bathroom and other care routines, personal items, smoking policy, room service/diet and guest tray routines, security routines, and visiting hours. Patient/Family are encouraged to report perceived risks to care and to ask questions if they do not understand what they are told or what they should do. See OBIX for further documentation.
[2024-03-04] MEDS: LACTATED RINGERS 1,000 ML 125 ML IV CONT (07:26)
[2024-03-04 08:20] LABS: Rapid Plasma Reagin Non-Reactive (NonReactive)
--- NOTE | 2024-03-04 08:34 | PM.IMHP ---
H&P: HPI History of Present Illness Date/Time: 03/04/24 08:34 Chief Complaint: Rupture membranes at term Narrative: 28-year-old 4 para 1 whose last menstrual period is unknown, EDC is 03/13/2024, confirmed by first-trimester ultrasound presents 30 weeks gestation with rupture membranes. has been uncomplicated. She does smoke weed. I asked her to stop smoking weed. Her group B strep screen is negative PMFSH Past Medical History Medical History Anxiety Diabetes, gestational Hypertension Surgical History Surgical History No history of previous surgery Family History Family History Grandparent Diabetes mellitus Father Diabetes mellitus Hypertension Social History Social History Smoking packs per day: 0.33 Smoking cigarettes per day: 6.6 Years smoked: 9 Smoking pack-years: 2.97 Smoking status: Former smoker Tobacco type: cigarettes Second hand tobacco smoke exposure: No Substance use: never Substance use type: crack/cocaine and heroin Other substance usage details: Smokes occasionally, Used heroin as teenager Last use: 12/29 Do You Feel Safe in your Home?: Yes Lack of Transportation: No Lack of Food: Never True Current Housing: I Have Housing Concerned About Future Housing: No Difficulty Paying Gas/Electric Bills: No Difficulty Paying for Meds: No Currently Unemployed: No Education: Grade School Difficulty w/ Childcare or Family Care: No Spiritual care concerns: No Meds Home Medications and Allergies Home Medications Medication Instructions Recorded Confirmed Type vit no.95-ferrous 1 tablet PO DAILY 12/12/22 03/04/24 History fumarate 28 mg-folic acid 800 mcg tablet () Allergies Allergy/AdvReac Type Severity Reaction Status Date / Time No Known Allergies Allergy Verified 12/12/22 23:32 Vital Signs Vital Signs - 24 hr 03/04/24 06:42 03/04/24 06:49 03/04/24 07:00 Pulse Rate 99 123 H Blood Pressure 122/70 122/84 Pulse Oximetry Oxygen Delivery Room Air 03/04/24 07:02 03/04/24 07:03 03/04/24 07:07 Pulse Rate 124 H Blood Pressure 115/70 Pulse Oximetry 97 100 Oxygen Delivery 03/04/24 07:12 03/04/24 07:13 03/04/24 07:16 Pulse Rate 113 H 105 H 107 H Blood Pressure 115/65 104/58 L 122/70 Pulse Oximetry 100 Oxygen Delivery 03/04/24 07:17 03/04/24 07:18 03/04/24 07:21 Pulse Rate 92 96 Blood Pressure 117/66 112/65 Pulse Oximetry 100 Oxygen Delivery 03/04/24 07:22 03/04/24 07:24 03/04/24 07:27 Pulse Rate 94 87 Blood Pressure 116/62 110/58 L Pulse Oximetry 99 99 Oxygen Delivery 03/04/24 07:30 03/04/24 07:32 03/04/24 07:33 Pulse Rate 93 95 Blood Pressure 110/63 106/65 Pulse Oximetry 99 Oxygen Delivery 03/04/24 07:36 03/04/24 07:37 03/04/24 07:39 Pulse Rate 86 82 Blood Pressure 113/65 124/95 H Pulse Oximetry 99 Oxygen Delivery 03/04/24 07:42 03/04/24 07:45 03/04/24 07:47 Pulse Rate 85 77 Blood Pressure 107/56 L 105/57 L Pulse Oximetry 100 100 Oxygen Delivery 03/04/24 07:48 03/04/24 07:51 03/04/24 07:52 Pulse Rate 101 H 102 H Blood Pressure 114/71 111/70 Pulse Oximetry 100 Oxygen Delivery 03/04/24 07:54 03/04/24 07:57 03/04/24 08:00 Pulse Rate 100 86 106 H Blood Pressure 113/66 111/67 106/66 Pulse Oximetry 100 Oxygen Delivery 03/04/24 08:02 03/04/24 08:03 03/04/24 08:06 Pulse Rate 128 H 94 Blood Pressure 112/70 119/77 Pulse Oximetry 100 Oxygen Delivery 03/04/24 08:07 03/04/24 08:09 03/04/24 08:12 Pulse Rate 101 H 90 Blood Pressure 114/72 104/57 L Pulse Oximetry 100 100 Oxygen Delivery 03/04/24 08:15 03/04/24 08:17
[2024-03-04 08:49] LABS: HIV 1/2 Ab P24 Ag Result Negative (Negative)
[2024-03-04] MEDS: ONDANSETRON INJ 4 MG/2 ML VIAL IV PUSH (09:39)
--- NOTE | 2024-03-04 11:04 | PM.OBPNLAB ---
Pain Control Date/time seen: 03/04/24 11:04 Comments: Comfortable with epidural. Pelvic Exam Dilation (cm): 9 Effacement (%): 100 station: 0 Contractions Contraction pattern: Irregular Status status: Category l Assessment and Plan Comments: A: IUP at term with SROM. P: Anticipate . Augment as needed.
[2024-03-04] MEDS: OXYTOCIN 30 UNITS/NS 500 ML 30 UNITS/500 ML BAG 999 UNITS IV CONT (11:40)
--- NOTE | 2024-03-04 11:56 | PM.OBPRVD ---
OB - Vaginal Delivery Note Procedure Delivery date: 03/04/24 Delivery monitor: External FHT and External Uterine Route of delivery: Episiotomy description: None Laceration Description: Perineal - 1st Degree and Labial (right) Delivery repair: vicryl (3-0) Specimen: Yes (cord blood) Quantitative Blood Loss (ml): 80 Anesthesia type: Epidural Disposition: PACU Complications: None Narrative: 28 y/o at 38 5/7 weeks gestation who presented to the hospital after a gush of fluid. SROM was diagnosed. She received an epidural. Amniotomy of a forebag yielded clear fluid. Oxytocin was administered intravenously to augment labor. Her labor progressed and her cervix dilated completely. She pushed with good effort and delivered the 's head to the perineum, followed by the body. The nose and mouth were bulb suctioned. After a delay, the cord was clamped and cut. The infant was handed off the field. Cord blood was collected. The placenta delivered spontaneously and was grossly normal in appearance. The usual 3 vessel cord was noted. A first degree midline perineal laceration was sustained, as was a right labial laceration. These were reapproximated using 3 0 Vicryl in interrupted figure of eight fashion. Excellent hemostasis resulted as did excellent reapproximation of the normal anatomy. Needle and instrument counts were correct. The patient was taken to recovery room in stable condition. The went to the nursery in stable condition. I was present and scrubbed for the entire delivery. Baby Date of : 03/04/24 Time of : 11:38 Weeks of gestation at delivery: 38 Infant gender: Male Weight (pounds): 5 Weight (ounces): 3 presentation: vertex position: Right Occiput Anterior Placenta delivery description: Spontaneous and Normal Configuration Cord Vessel Description: 3 Vessels score one minute: 9 score five minutes: 9
--- NOTE | 2024-03-04 11:59 | PM.OBDSVD ---
DS: Admitting Diagnosis Discharge Date 03/06/2024 <Philip Ansari MD - Last Filed: 03/06/24 11:35> 03/05/2024 <Blaine Hdz MD - Last Filed: 03/06/24 07:15> Admitting Diagnosis IUP at 38 5/7 weeks <Philip Ansari MD - Last Filed: 03/06/24 11:35> DS: Discharge Diagnosis Discharge Diagnosis (1) (normal spontaneous vaginal delivery): Code(s): O80 - Encounter for full-term uncomplicated delivery <Philip Ansari MD - Last Filed: 03/06/24 11:35> Status: Acute <Philip Ansari MD - Last Filed: 03/06/24 11:35> OB - DS: Summary OB Procedures : None <Philip Ansari MD - Last Filed: 03/06/24 11:35> OB Procedures Intrapartum: Spontaneous Vag Delivery <Philip Ansari MD - Last Filed: 03/06/24 11:35> OB Procedures: : None <Philip Ansari MD - Last Filed: 03/06/24 11:35> Peripartum Data Laceration Description: Perineal - 1st Degree and Labial (right) <Philip Ansari MD - Last Filed: 03/06/24 11:35> Episiotomy description: None <Philip Ansari MD - Last Filed: 03/06/24 11:35> Time Spent with Patient Time attestation: Total time spent providing and/or coordinating discharge services: <Philip Ansari MD - Last Filed: 03/06/24 11:35> Exam Const: General: cooperative and healthy appearing <Blaine Hdz MD - Last Filed: 03/06/24 07:15> Nutritional Appearance: average body habitus <Blaine Hdz MD - Last Filed: 03/06/24 07:15> Orientation/consciousness: oriented to person, oriented to place and oriented to time <Blaine Hdz MD - Last Filed: 03/06/24 07:15> Resp: Effort & Inspection: normal respiratory effort <Blaine Hdz MD - Last Filed: 03/06/24 07:15> Cardio: Rate: regular rate <Blaine Hdz MD - Last Filed: 03/06/24 07:15> Rhythm: regular rhythm <Blaine Hdz MD - Last Filed: 03/06/24 07:15> Heart sounds: S1 normal heart sound present and S2 normal heart sound present <Blaine Hdz MD - Last Filed: 03/06/24 07:15> GI: Inspection: normal to inspection <Blaine Hdz MD - Last Filed: 03/06/24 07:15> DS: Data Data Completed and Pending Labs on day of discharge: Labs from last 24 hours 03/04/24 03/04/24 11:39 06:30 WBC 7.8 RBC 4.02 L Hgb 11.2 L Hct 35.4 L MCV 88.1 MCH 27.9 MCHC 31.6 L RDW 14.3 Plt Count 285 MPV 9.9 Immature Gran % (Auto) 0.8 H Neut % (Auto) 64.0 Lymph % (Auto) 26.2 [place] % (Auto) 7.9 Eos % (Auto) 0.8 Baso % (Auto) 0.3 Lymph # (Auto) 2.04 [place] # (Auto) 0.6 Eos # (Auto) 0.1 Baso # (Auto) 0.0 Abs Immat Gran (auto) 0.06 H Absolute Neuts (auto) 5.0 Absolute Nucleated RBC 0.000 Nucleated RBC % 0.0 Urine Opiates Screen Pending Urine Methadone Screen Pending Ur Barbiturates Screen Pending Ur Phencyclidine Scrn Pending Ur Amphetamine Screen Pending U Benzodiazepines Scrn Pending Urine Cocaine Screen Pending U Cannabinoids Screen Pending RPR Non-reactive HIV 1&2 Ab/P24 Ag 4thGn Negative Blood Type A Positive Antibody Screen Negative <Philip Ansari MD - Last Filed: 03/06/24 11:35> Discharge Plan Discharge Attending physician on discharge: Blaine Clinton <Philip Ansari MD - Last Filed: 03/06/24 11:35> Blaine Clinton <Blaine Hdz MD - Last Filed: 03/06/24 07:15> Discharging Clinician: Blaine Clinton <Philip Ansari MD - Last Filed: 03/06/24 11:35> Blaine Clinton <Blaine Hdz MD - Last Filed: 03/06/24 07:15> Patient Disposition: Home, Self-Care <Philip Ansari MD - Last Filed: 03/06/24 11:35> Activity: pelvic rest <Philip Ansari MD - Last Filed: 03/06/24 11:35> pelvic rest <Blaine Hdz MD - Last Filed: 03/06/24 07:15> Diet: regular <Philip Ansari MD - Last Filed: 03/06/24 11:3
[2024-03-04 12:05] LABS: Amphetamine Screen Urine Negative (Negative); Barbiturate Screen Urine Negative (Negative); Benzodiazepines Screen Urine Negative (Negative); Cannabinoid Screen Urine Positive (Negative); Cocaine Screen Urine Negative (Negative); Methadone Screen Urine Negative (Negative); Opiate Screen Urine Negative (Negative); Phencyclidine Screen Urine Negative (Negative)
[2024-03-04] MEDS: OXYTOCIN 30 UNITS/NS 500 ML 30 UNITS/500 ML BAG 125 UNITS IV CONT (12:30)
[2024-03-04] MEDS: WITCH HAZEL 40 PADS 1 PAD TOPICAL (14:36)
[2024-03-04] MEDS: BENZOCAINE 20% AER SPR (*SP) 56 GM CAN 1 SPRAY TOPICAL (14:36)
[2024-03-04] MEDS: ACETAMINOPHEN 325 MG TABLET 650 MG PO ×2 (14:42→22:12)
--- NOTE | 2024-03-04 15:05 | PC.NURSE ---
Patient transferred to post room #282 via wheelchair. Support person present. Oriented to unit, room, information board, rooming in, admission packet and security measures. Patient verbalizes understanding.
[2024-03-04] MEDS: IBUPROFEN 600 MG TABLET PO (19:11)
[2024-03-05] MEDS: IBUPROFEN 600 MG TABLET PO ×3 (01:33→16:53)
[2024-03-05 04:52] LABS: Hematocrit 29.3 % (37.0-47.0); Hemoglobin 9.2 g/dL (12.0-15.0)
--- NOTE | 2024-03-05 06:39 | P.PNOB_ITS ---
OB - PN: Subj Subjective Date/time seen: 03/05/24 06:39 Patient comments: no complaints baby status: doing well and other (baby having sugars fllwed) OB - PN: Obj Data Labs 03/05/24 04:33 Labs: Laboratory Results - last 24 hr 03/04/24 03/04/24 03/05/24 06:30 11:39 04:33 WBC 7.8 RBC 4.02 L Hgb 11.2 L 9.2 L Hct 35.4 L 29.3 L MCV 88.1 MCH 27.9 MCHC 31.6 L RDW 14.3 Plt Count 285 MPV 9.9 Immature Gran % (Auto) 0.8 H Neut % (Auto) 64.0 Lymph % (Auto) 26.2 [place] % (Auto) 7.9 Eos % (Auto) 0.8 Baso % (Auto) 0.3 Lymph # (Auto) 2.04 [place] # (Auto) 0.6 Eos # (Auto) 0.1 Baso # (Auto) 0.0 Abs Immat Gran (auto) 0.06 H Absolute Neuts (auto) 5.0 Absolute Nucleated RBC 0.000 Nucleated RBC % 0.0 Urine Opiates Screen Negative Urine Methadone Screen Negative Ur Barbiturates Screen Negative Ur Phencyclidine Scrn Negative Ur Amphetamine Screen Negative U Benzodiazepines Scrn Negative Urine Cocaine Screen Negative U Cannabinoids Screen Positive A RPR Non-reactive HIV 1&2 Ab/P24 Ag 4thGn Negative Blood Type A Positive Antibody Screen Negative OB - PN A/P Plan day: 1 Plan: routine care Time Spent With Patient Time: Total time spent is greater than 50% in coordination of care (as documented) at patient's floor/unit and/or counseling patient: Time with patient: less than 15 minutes Exam Const: General: cooperative, healthy appearing and comfortable Nutritional Appearance: cachectic Orientation/consciousness: oriented to person, oriented to place and oriented to time HENMT: Head: normal to inspection Resp: Effort & Inspection: normal respiratory effort Cardio: Rate: regular rate Rhythm: regular rhythm Heart sounds: S1 normal heart sound present and S2 normal heart sound present GI: Inspection: normal to inspection ( fundus firm below umbilicus)
[2024-03-05 07:30] VITALS: BP 116/63; PULSE 78; RESP 16; TEMP 36.6; O2SAT 100
[2024-03-05] MEDS: MULTIVIT/MIN/PREN/FOL AC/IRON TABLET 1 TAB PO (08:12)
[2024-03-05] MEDS: DOCUSATE SODIUM 100 MG CAPSULE PO ×2 (08:12→16:52)
[2024-03-05] MEDS: POLYSACCHARIDE IRON COMPLEX 150 MG CAPSULE PO ×2 (08:13→16:52)
--- NOTE | 2024-03-05 08:31 | WPDANLDPN2 ---
Anes-Prog Note L&D Date/Time: 03/05/24 08:31 Neuro status: Neuro function grossly intact. Vital Signs: Last Vital Signs Temp 36.8 C 03/04/24 23:40 Pulse 72 03/04/24 23:40 Resp 16 03/04/24 23:40 BP 93/60 L 03/04/24 23:40 Pulse Ox 100 03/04/24 23:40 O2 Del Method Room Air 03/04/24 06:42 Pain score (VAS): 2-pt reports tenderness at epidural site Patient feedback: Patient satisfied with anesthetic care.
--- NOTE | 2024-03-05 13:21 | PCCCNOTE ---
Per Care Coordination. Patient referred to CC for mother having positive UDS for marijuana. Baby not being tested. Met with pt. and her sister at bedside. Pt. reports living home with her 1 year old and FOB. She reports having good family support. She did not have carseat for baby, so provided one to her. Pt. also given a basket of baby care items. Pt. plans to let WIC know she had this baby as she is already current with them for her first child. Pt. reports recently quit smoking cigarettes and marijuana, but still in her system. Spoke with Richa Verma at [facility] hotline who took pt.'s situation as information only (Intake ID#[id number]). No further CC needs identified. Pt. did not want list of resources.
--- NOTE | 2024-03-05 13:39 | PC.NURSE ---
[id number] Introductions were made, then consulted with patient to assess needs related to . Report received this morning that patient has sore nipples. Mother led the conversation with her?plans to feed?her infant, the?experience so far and has a 1 year old child at home. Assessment of the nipples shows some redness to the nipples. Encouraged understanding of the benefits of skin to skin (demonstrating unwrapping infant and placing upright on her chest), stimulating with massage touch, changing positions to encourage wakefulness, how to watch for early feeding cues, responsive feeding, feeding on demand (aiming for 8-12 times in 24 hours, about every 2-3 hours), milk production, building/maintaining a milk supply, duration of feeding, signs of adequate intake/output and how to record on the feeding sheet. Mother works well with her infant with encouragement and education. Patient's sister is at the bedside with excellent experience, support and wisdom as it relates to . Reviewed positioning and ear, shoulder, hip alignment, supporting the breast to facilitate a deep latch, asymmetrical latch (off-center), leading with the chin with a big, open, wide gape and body close to mother once feeding cues are visualized. latched optimally to the left breast in cross cradle position, then the right breast. Education given to the mother of how to visualize the suckling (with good rocking jaw motion), swallows (dropping of the lower jaw) and how to listen for drinking at the breast (the ka sound) and demonstrated well with longer deep drops with the lower jaw. was able to maintain latch without pain to mother protecting the nipple with optimal positioning and latching. Mother taught how to encourage infant to not pause too long and to drink at the breast rather than just hang out. Reviewed comfort measures of healing with a warm, wet washcloth to rinse breast, detaching infant, then leave open to air-dry, good handwashing when or touching the breast/nipples to prevent infection. Mother voiced understanding of skin to skin, stimulating with massage touch, responsive feedings, hand expressed colostrum, talking to infant to encourage if it has been 2 -2.5 hours since the start of the last , to call if infant does not latch, or if there is discomfort with . More encouragement and reiterating the education is suggested. Resources used for education were facilitated with the visual educational handouts/ tool/mom and baby guide. Inpatient/outpatient resources provided with feeding sheet, name written on the communication board, and the mom/baby guide. Mother voiced understanding of information, demonstrated learning, encouraged to call for assistance and recommended. [id number] Purposefully rounded and mother is anxious concerning how to know if her infant is getting enough and how to care for two children under the age of 1. We had a discussion with sister included, [employer] and child day care provider/ resources in the community. Mother voiced understanding of the information. [id number] Reviewed the benefits of [id number], how to calm infant, check the diaper and watch for feeding cues. Once feeding cues were visualized, then RN MO guided mother with infant in cross cradle positioning to the right breast with her supporting her breast with the U-hold to sandwich breast to achieve a deeper latch to protect the nipple. Reviewed effective latching and watching for swallows with mother. Mother voiced understanding and it is recommended she call for assistance or any questions regarding infant care or while inpatient.
--- NOTE | 2024-03-05 14:57 | PC.NURSE ---
[id number] Purposefully rounded to assess for needs. Mother has breastfed her independently at 1340 and shared that breastfed for 5 minutes, then went to sleep. Guided mother to latch cross cradle to the right breast. is reluctant to maintain latch. latched to the left breast and demonstrated swallowing well without pain to mother. Reviewed and reminded mother to call for assistance, touch and talk to to encourage drinking at the breast rather than pausing and going to sleep. Paced bottle feeding was reviewed with demonstration this time with father of baby present. Father of baby shared that their first child had difficulty drinking from a bottle and they used a slow flow nipple. This infant is gaggy with paced bottle feeding, then latched once again to the left breast demonstrating swallowing. Parents voiced understanding of the information and sister is present with supporting parents with the and the one year old. Reported to the Primary RN.
[2024-03-05 19:20] VITALS: BP 103/56; PULSE 66; RESP 16; TEMP 36.6; O2SAT 99
[2024-03-06] MEDS: IBUPROFEN 600 MG TABLET PO (01:12)
--- NOTE | 2024-03-06 07:11 | PM.OBPNVD ---
OB - PN: Subj Subjective Date/time seen: 03/06/24 07:11 Patient comments: no complaints and pain well controlled baby status: doing well OB - PN: Obj Data Labs 03/05/24 04:33 OB - PN A/P Plan day: 2 Plan: routine care, discharge home and follow up 6 weeks Time Spent With Patient Time: Total time spent is greater than 50% in coordination of care (as documented) at patient's floor/unit and/or counseling patient: Exam Const: General: cooperative, healthy appearing and comfortable Nutritional Appearance: average body habitus Orientation/consciousness: oriented to person, oriented to place and oriented to time Resp: Effort & Inspection: normal respiratory effort Cardio: Rate: regular rate Rhythm: regular rhythm Heart sounds: S1 normal heart sound present and S2 normal heart sound present GI: Inspection: normal to inspection
[2024-03-06 07:30] VITALS: BP 107/57; PULSE 78; RESP 16; TEMP 37; O2SAT 100
[2024-03-06] MEDS: DOCUSATE SODIUM 100 MG CAPSULE PO (07:49)
[2024-03-06] MEDS: WITCH HAZEL 40 PADS 1 PAD TOPICAL (07:49)
[2024-03-06] MEDS: BENZOCAINE 20% AER SPR (*SP) 56 GM CAN 1 SPRAY TOPICAL (07:49)
[2024-03-06] MEDS: MULTIVIT/MIN/PREN/FOL AC/IRON TABLET 1 TAB PO (07:49)
[2024-03-06] MEDS: POLYSACCHARIDE IRON COMPLEX 150 MG CAPSULE PO (07:50)
--- NOTE | 2024-03-06 14:44 | PC.NURSE ---
[id number] Purposefully rounded to assess for needs. Mother shared has had two bottles during the night and one this morning related to her nipples being sore. Assessment of the nipples reveals redness bilaterally. Reviewed milk production and how to protect her milk supply. Mother's nipples are too small to fit appropriately with a pump flange here at [facility]. Educated, demonstrated, guided mother in the skill of hand expression. Reminded mother to be gentle to her breast as she would stroking her infant. Mother demonstrated understanding of the information, infant placed upright [id number]. Mother instructed to call for help with the next . [id number] Mother did not call with the last session so, I purposefully rounded to assess for feeding questions and concerns. Mother received assistance in guided assistance putting infant to the breast. latched to the left breast using cross cradle positioning and the sandwich U-hold. Education from yesterday was reiterated. Mother denies pain and nipple was not misshaped, however; detached after 5 minutes. was latched onto the right breast with the same position and assistance. Mother denied pain. There is nice rounded cheek line and rocking jaw motion at the beginning. Reassessed and infant had a nice flange mouth, no demonstrating of swallowing, mother denies pain, however; latch is different and mother is distracted. Detached infant and nipple is injured. Discussed keeping nipple clean and dry with a big, wide, open gape latch to protect the nipple. Encouraged mother to shower and apply a clean gel pad to her right nipple. Reviewed how to remove milk from her breast with her hands gently related to not having the proper fitting flange for mother's nipples. Mother voiced understanding, however; she is distracted, eager to learn and information is repeated often. [id number] Mother is showered and feeling better with a clean gel pad on the right nipple. Demonstrated waking infant, placing [id number] and when feeding cues are visualized encouraged mother with minimal assistance latching with a wide open gape to the left breast using cross cradle and the U-hold. Discussed the importance of encouraging a deep latch with tongue down. Infant has a tight lower frenulum. When infant cries the tongue lifts and curls. We discussed this yesterday as something to consider before latching . Nipple was not misshaped after effectively breastfed on the left breast. Encouraged mother to gently compress breast as nurses, use her [employer] resources, her sister for support, encourage father of baby with helping with the one year old. Parents voiced understanding of the information. [facility] number shared, form faxed and parents encouraged to reach out today. Mother voiced understanding of protecting her milk supply and supplementing infant with formula until her milk comes fully in. [id number] Confirmed nipple size with a measuring tape for sizing a pump breast shield fit appropriately if the possibility occurred. Mother voiced she is able to hand express gently and encouraged milk removal with . Mother is feeding appropriately for growth of infant and understands stimulating to eat if needed. Infant has had appropriate feedings in the last 24 hours meets the outcomes for weight, output, blood sugar and jaundice at this time. Reinforced understanding of milk production, transition of milk, signs of adequate intake, transition of stool, prevention/relief of engorgement, plugged ducts, mastitis, responsive watching for feeding cues, the different methods of stimulating infant to breastfeed 1-3 hours after the start of the last feeding, community resources, and when to call a provider using the resource of the feeding sheet along with the mom and baby guide. Mother voiced understanding of the information shared, is confident t
[2024-03-07 10:47] VITALS: BP 106/52; PULSE 70; RESP 18; TEMP 36.6; O2SAT 99
== END 2024-03-06 14:47 | disposition home or self-care (01) | DRG 560 ==
LOC: ANHLDR 12:00 → ANHOB2 15:08
PROVIDERS: Obstetrics & Gynecology; Admitting Provider Obstetrics & Gynecology; Visit Provider Obstetrics & Gynecology
DX: O70.0 First degree perineal laceration during delivery (principal); Z3A.38 38 weeks gestation of pregnancy; Z37.0 Single live birth
CPT/HCPCS: 36415; 80307; 85014; 85018; 85025; 86592; 86703; 86850; 86900; 86901; A9270; G0432; J2405; J2590; J2795; J7120

== ENCOUNTER 2024-06-04 19:05 | Emergency (ER) | payer OTHER, SELFPAY ==
[2024-06-04 19:20] VITALS: BP 133/80; PULSE 74; RESP 18; TEMP 37.1; O2SAT 100
--- NOTE | 2024-06-04 20:15 | ED.FEMALEGU ---
HPI - Female Genitourinary General Chief complaint: Urogenital-Female Stated complaint: Vaginal Issue History of Present Illness HPI Narrative: Patient is a 29-year-old female, presents to [facility] with vaginal burning and itching, onset of symptoms 1 week ago. She was seen 2 days ago at a local urgent care where they completed STI screening, those results are pending. She was treated for yeast infection, which she is taking an oral antibiotic of some sort for. She is uncertain what medication she is taking but she has taken 2 doses thus far. She states she has been pouring hot water on her vagina as well as spraying burn spray on the area to alleviate itching. She denies any new vaginal discharge, she has no known STI risk. She has not had a fever, she has no pelvic pain, she denies chance of . Related Data Home Medications Medication Instructions Recorded Confirmed vit no.95-ferrous 1 tablet PO DAILY 12/12/22 03/04/24 fumarate 28 mg-folic acid 800 mcg tablet () escitalopram oxalate 5 mg tablet mg 06/04/24 Allergies Allergy/AdvReac Type Severity Reaction Status Date / Time No Known Allergies Allergy Verified 06/04/24 19:29 Review of Systems Genitourinary: Comments: Refer to [facility] Past Medical History Medical History Anxiety Diabetes, gestational Hypertension Surgical History Surgical History No history of previous surgery Family History Family History Grandparent Diabetes mellitus Father Diabetes mellitus Hypertension Social History Social History Smoking packs per day: 0.33 Smoking cigarettes per day: 6.6 Years smoked: 9 Smoking pack-years: 2.97 Smoking status: Former smoker Tobacco type: cigarettes Second hand tobacco smoke exposure: No Substance use: never Substance use type: crack/cocaine and heroin Other substance usage details: Smokes occasionally, Used heroin as teenager Last use: 12/29 Do You Feel Safe in your Home?: Yes Lack of Transportation: No Lack of Food: Never True Current Housing: I Have Housing Concerned About Future Housing: No Difficulty Paying Gas/Electric Bills: No Difficulty Paying for Meds: No Currently Unemployed: No Education: Grade School Difficulty w/ Childcare or Family Care: No Spiritual care concerns: No Exam Const: General: healthy appearing and no acute distress Nutritional Appearance: well nourished Orientation/consciousness: patient oriented x3 Limitations: no limitations HENMT: Head: normal to inspection Eyes: Conjunctivae: conjunctivae normal Neck: Neck: normal visual inspection Resp: Effort & Inspection: normal respiratory effort Cardio: Rate: regular rate Rhythm: regular rhythm : Other: the patient has mild erythematous swelling to her clitoris as well as a mirrored rash in the perineum that is consistent with a candidal infection. There is no abnormal vaginal discharge, no malodor, no inguinal lymphadenopathy, no vesicles or pustules noted Course Course Emergency Course: suspect patient does have a candidal infection is not having enough antibiotics to improve symptoms as far. I also believe that she is exacerbating her symptoms by applying hot water to her skin surface and burn spray. She is encouraged to apply cool compress the area in lieu of hot water, to apply nystatin cream that was prescribed here today and to continue the antibiotics as prescribed. Follow-up with marine pipefitter is stressed. Patient verbalized understanding she is agreeable with plan Level of Care: Express Care Visit (50097) Vital Signs Vital signs: Vital Signs Temperature 37.1 C 06/04/24 19:20 Pulse Rate 74 06/04/24 19:20 Respir
== END 2024-06-04 20:23 | disposition home or self-care (01) ==
PROVIDERS: Emergency Provider Nurse Practitioner Family; PCP Nurse Practitioner
DX: N76.0 Acute vaginitis (principal); Z87.891 Personal history of nicotine dependence; I10 Essential (primary) hypertension
CPT/HCPCS: 99213; G0463